=== PATIENT | female | born 1995 | race Caucasian/White ===

== ENCOUNTER 2017-04-23 15:48 | Emergency (ER) | payer SELFPAY ==
[~2017-04-23] VITALS: Ht 162.6 cm; Wt 56.0 kg
[2017-04-23 15:51] VITALS: BP 124/71; PULSE 75; RESP 16; TEMP 98.7; O2SAT 98
--- NOTE | 2017-04-23 16:23 | PD ---
HPI Chief Complaint: Musculoskeletal Complaint Time Seen by Provider: 16:04 Travel History International Travel<30 days: No Contact w/Intl Traveler<30days: No Traveled to known affect area: No History of Present Illness HPI 21-year-old female presents to the emergency room for evaluation of right foot pain for the past 2 weeks. Patient denies trauma or injury. States she has been walking a lot her job. She has pain with ambulation and when she pushes on the midfoot. Pain often radiates up her leg. She denies paresthesias. She has been taking Tylenol for pain. Denies chronic medical conditions or daily medications. [facility] Social History Tobacco Use: No Allergies-Medications (Allergen,Severity, Reaction): Coded Allergies: No Known Allergies (Unverified , 04/23/17) Review of Systems Except as stated in HPI: all other systems reviewed are Neg Physical Exam Narrative GENERAL: Well-nourished, well-developed female in no acute distress. Afebrile. Ambulatory. SKIN: Focused skin assessment warm/dry. No erythema or ecchymosis. HEAD: Normocephalic. EYES: No scleral icterus. No injection or drainage. NECK: Supple, trachea midline. No JVD or lymphadenopathy. CARDIOVASCULAR: Regular rate and rhythm without murmurs, gallops, or rubs. RESPIRATORY: Breath sounds equal bilaterally. No accessory muscle use. MUSCULOSKELETAL: No cyanosis. No obvious edema or deformity. 2+ dorsalis pedis pulse and less than 2 second capillary refill distally. Full range of motion. Tenderness to palpation of the dorsal midfoot. Data Data Last Documented VS Vital Signs Date Time Temp Pulse Resp B/P (MAP) Pulse Ox O2 Delivery O2 Flow Rate FiO2 04/23/17 16:45 04/23/17 15:51 98.7 75 16 98 Room Air Orders Orders Foot, Complete ([id number]) (04/23/17 ) Ed Discharge Order (04/23/17 16:37) [place] Bandage (04/23/17 16:37) MDM Medical Decision Making Medical Screen Exam Complete: Yes Emergency Medical Condition: Yes Medical Record Reviewed: Yes Differential Diagnosis Sprain, strain, contusion, stress fracture Narrative Course 21-year-old female presents to the emergency room for evaluation of right foot pain for the past 2 weeks. Patient denies trauma or injury. Physical exam is unremarkable. There is no obvious edema, deformity, edema, or ecchymosis. There is TTP to the dorsal, lateral midfoot. Patient is ambulatory. X-ray obtained to evaluate for stress fracture. X-ray is negative. This is likely strain or sprain with unknown injury. Patient told to follow-up with the PCP if symptoms persist or return for worsening symptoms. She understands and agrees to plan. Diagnosis Primary Impression: Right foot sprain Qualified Codes: S93.601A - Unspecified sprain of right foot, initial encounter Referrals: Primary Care Physician Additional Instructions: Take ibuprofen with food as directed, as needed for pain. Apply ice to the affected area for 20 minutes at a time, as needed for pain and swelling. Follow-up with a primary care physician. Return to the emergency room for worsening symptoms. Med/Other Pt SpecificInfo: Prescription(s) given Disposition: 01 DISCHARGE HOME Condition: Stable Corinna De La Cruz Apr 23, 2017 16:23
--- NOTE | 2017-04-23 16:35 | RADRPT ---
EXAM DATE/TIME: 04/23/2017 16:21 [place] COMPARISON: No previous studies available for comparison. INDICATIONS : Right foot pain, to lateral side of foot. MEDICAL HISTORY : None. SURGICAL HISTORY : None. ENCOUNTER: Initial ACUITY: 1 day PAIN SCORE: 0/10 LOCATION: Right foot FINDINGS: Three view examination of the right foot demonstrates no soft tissue swelling, dislocation, or fractu re. The tarsal bones appear intact. The interphalangeal and metatarsophalangeal joints are intact. The calcaneus is intact. Bony mineralization is normal. CONCLUSION: Unremarkable examination of the right foot. Chuy Pond Jr., MD on April 23, 2017 at 16:33 Board Certified Radiologist. This report was verified electronically.
== END 2017-04-23 16:54 | disposition home or self-care (01) ==
LOC: NEPK 15:48
DX: S93.601A Unspecified sprain of right foot, initial encounter (principal); X50.3XXA Overexertion from repetitive movements, initial encounter; Y93.01 Activity, walking, marching and hiking; Y99.0 Civilian activity done for income or pay
CPT/HCPCS: 73630; 99283